=== PATIENT | male | born 1960 | race Caucasian/White ===

== ENCOUNTER 2017-07-11 15:12 | Outpatient (CLI) | payer BC ==
--- NOTE | 2017-07-11 16:12 | Diagnostic Imaging Report ---
Indication: Right ankle pain Technique: 3 views of the right ankle Comparison: none Findings: There is soft tissue swelling over the lateral malleolus. No acute fractures. No dislocations. The joint spaces are preserved. Small unfused ossification centers are seen adjacent to the medial and lateral malleoli. There are vascular calcifications Impression: No acute process
== END 2017-07-11 17:12 | disposition home or self-care (01) ==
LOC: RAD 15:12
DX: M25.571 Pain in right ankle and joints of right foot (principal)